=== PATIENT | male | born 1960 | race Caucasian/White ===

== ENCOUNTER 2024-08-29 13:04 | Outpatient (AMB) | payer BC, SELFPAY ==
--- NOTE | 2024-08-29 13:15 | A.OFFPC_ITS ---
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 Intake Note: New patient visit Weight Training Instructor Required: No Tobacco use date assessed: 08/29/24 Fall risk assessment: No Falls in past year Last assessed Fall Risk: 08/29/24 Dental Screening Dental Screen Date: 08/29/24 Did you have a dental visit in the last 12 months?: No Did you have a dental problem in the last 6 months where you did not have access to dental care?: No Was dental information given to patient?: Patient declined (Has dentures) HPI HPI Comments History of Present Illness Details 63 year old male with a past medical his tory of seasonal allergies presenting for follow up No prescription medications. Since November patient has been having daily moderate bilateral pain in the upper arms mainly in biceps. Denies injury. Denies frequent neck or thoracic pain. Only other associated symptoms-started snoring around the same time Following with optometry, Dr Ez MENG CONSTITUTIONAL: Denies weight loss, fever and chills. HEENT: Denies changes in vision and hearing. RESPIRATORY: Denies SOB and cough. CV: Denies palpitations and CP GI: Denies abdominal pain, nausea, vomiting and diarrhea. : Denies dysuria and urinary frequency. MSK: see HPI. SKIN: Denies rash and pruritus. NEUROLOGICAL: Denies headache PSYCHIATRIC: Denies recent changes in mood. PHYSICAL EXAM: GENERAL: Alert and oriented x 3. NAD EYES: EOMI. Anicteric. HENT: Moist mucous membranes. No scleral icterus. No cervical lymphadenopathy. LUNGS: Clear to auscultation bilaterally. CARDIOVASCULAR: Regular rate and rhythm. No murmur. No JVD. ABDOMEN: Soft, non-tender +bs EXTREMITIES: No edema. Non-tender. SKIN: No rashes or lesions. Warm. NEUROLOGIC: No focal neurological deficits. CN II-XII grossly intact PSYCHIATRIC: Cooperative. 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 1. Little interest or pleasure in doing things: not at all 2. Feeling down, depressed, or hopeless: not at all 3. Trouble falling or staying asleep, or sleeping too much: not at all 4. Feeling tired or having little energy: several days 5. Poor appetite or overeating: not at all 6. Feeling bad about yourself - or that you are a failure or have let yourself or your family down: not at all 7. Trouble concentrating on things, such as reading the newspaper or watching television: not at all 8. Moving or speaking so slowly that other people could have noticed. Or the opposite - being so fidgety or restless that you have been moving around a lot more than usual: not at all 9. Thoughts that you would be better off or of hurting yourself in some way: not at all Total score: 1 Depression Screening Interpretation: Negative (neg) Depression Screening Done: Yes 33085 - PHQ-9 Billing: Yes Source: Developed by Drs. Diallo Chew, Linnette Marte, Hema Danielle and colleagues, with an educational dayne from [employer]. Thrive Questionnaire Date Thrive assessed: 08/29/24 I am a: Patient What is your living situation today?: I have a steady place to live Within the past 12 months, did the food you bought not last and you didn't have the money to get more?: Never true Within the past 12 months, did you worry whether your food would run out before you got money to buy more?: Never true Do you have trouble paying for medicines?: No Do you have trouble getting transportation to medical appointments?: No Do you have trouble paying your heating and electricity bill?: No Do you have trouble taking care of your child, family member or friend?: No Do you have trouble with day-to-day activities such as bathing, preparing meals, shopping, managing finances, etc.?: No Are you currently unemployed and looking for a job?: No Are you interested in more education?: No Please select the resources that you would like help with: None Currently or been in a relationship where the following occur: No concerns reported THRIVE Score: 0 AUDIT C Alcohol Use Questionnaire (AUDIT-C) 1. How often do you have a drink containing alcohol?: Monthly or less 2. How many drinks containing alcohol do you have on a typical day when you are drinking?: 1 or 2 3. How often do you have six or more drinks on one occasion?: Never Total Score: 1 NIC-7 AMB Questionnaire NIC-7 Date NIC - 7 assessed: 08/29/24 Feeling nervous, anxious, or on edge: 0 = Not at all Not being able to stop or control worryin = Not at all Worrying too much about different things: 0 = Not at all Trouble relaxin = Not at all Being so restless that it is hard to sit still: 0 = Not at all Becoming easily annoyed or irritable: 0 = Not at all Feeling afraid as if something awful might happen: 0 = Not at all Total NIC-7 score (0-4 normal; 5-9 mild; 10-14 moderate; 15-21 severe): 0 Source: Developed by Drs. Diallo Chew, Linnette Marte, Hema andersen nd colleagues, with an educational dayne from [employer]. NIC-7 Assessment Billing NIC-7 Assessment Tool: NIC-7 Assessment 02701 Physical exam (Primary Care) Vital Signs: Last Vital Signs Pulse 77 08/29/24 13:21 Resp 16 08/29/24 13:21 BP 130/74 08/29/24 13:21 Pulse Ox 95 08/29/24 13:21 Oxygen Delivery Method Room Air 08/29/24 13:21 BMI result Body Mass Index 31.4 Tobacco/Smoking Status: Tobacco use Status Tobacco use date assessed 08/29/24 08/29/24 13:24 Patient Tobacco Use Status Current everyday Tobacco 08/29/24 13:24 e-Cigarette/Vaping Use Never Used 08/29/24 13:24 PHQ-9: PHQ-9 Score PHQ-9: Total score 1 08/30/24 14:50 Depression Screening Interpretation: Negative (neg) Thrive Assessment: Date of Thrive Assessment Date Thrive assessed 08/29/24 08/29/24 13:32 Currently or been in a relationship where the following occur: No concerns reported Coding Level of Care Code Est Pt Level 4 (40924) Complex EM visit Add On G2211 Diagnoses Muscle pain M79.10 Bilateral arm pain M79.601; M79.602 Additional Codes NIC-7 Assessment Billing - NIC-7 Assessment Tool: NIC-7 Assessment 28090 ( [id number]) Assessment & Plan Assessment & Plan (1) Muscle pain: Code(s): M79.10 - Myalgia, unspecified site Category: Medical Plan: xray thoracic and cervical spine Lyme and inflammation tests Consider sleep study (2) Bilateral arm pain: Code(s): M79.601 - Pain in right arm; M79.602 - Pain in left arm Category: Medical Plan: see above Orders: Orders Lyme IgG/IgM w/reflex to WB 08/29/24 M54.2 - Cervicalgia, M54.6 - Pain in thoracic spine, M79.601 - Pain in right arm, M79.602 - Pain in left arm, S46.219A - Strain of muscle, fascia and tendon of other parts of biceps, unspecified arm, initial encounter Complete Blood Count Auto Diff 08/29/24 M54.2 - Cervicalgia, M54.6 - Pain in thoracic spine, M79.601 - Pain in right arm, M79.602 - Pain in left arm, S46.219A - Strain of muscle, fascia and tendon of other parts of biceps, unspecified arm, initial encounter Prostate Specific Antigen 08/29/24 M54.2 - Cervicalgia, M54.6 - Pain in thoracic spine, M79.601 - Pain in right arm, M79.602 - Pain in left arm, S46.219A - Strain of muscle, fascia and tendon of other parts of biceps, unspecified arm, initial encounter Comprehensive Met. Panel 08/29/24 M54.2 - Cervicalgia, M54.6 - Pain in thoracic spine, M79.601 - Pain in right arm, M79.602 - Pain in left arm, S46.219A - Strain of muscle, fascia and tendon of other parts of biceps, unspecified arm, initial encounter Erythrocyte Sedimentation Rate 08/29/24 M54.2 - Cervicalgia, M54.6 - Pain in thoracic spine, M79.601 - Pain in right arm, M79.602 - Pain in left arm, S46.219A - Strain of muscle, fascia and tendon of other parts of biceps, unspecified arm, initial encounter XR cervical spine 4V 08/29/24 M54.2 - Cervicalgia, M54.6 - Pain in thoracic spine, M79.601 - Pain in right arm, M79.602 - Pain in left arm, S46.219A - Strain of muscle, fascia and tendon of other parts of biceps, unspecified arm, initial encounter XR thoracic spine 3V 08/29/24 M54.2 - Cervicalgia, M54.6 - Pain in thoracic spine, M79.601 - Pain in right arm, M79.602 - Pain in left arm, S46.219A - Strain of muscle, fascia and tendon of other parts of biceps, unspecified arm, initial encounter Lipid Panel 08/29/24 M54.2 - Cervicalgia, M54.6 - Pain in thoracic spine, M79.601 - Pain in right arm, M79.602 - Pain in left arm, S46.219A - Strain of muscle, fascia and tendon of other parts of biceps, unspecified arm, initial encounter Magnesium 08/29/24 M79.10 - Myalgia, unspecified site, Z12.5 - Encounter for screening for malignant neoplasm of prostate, Z13.0 - Encounter for screening for diseases of the blood and blood-forming organs and certain disorders involving the immune mechanism, Z13.228 - Encounter for screening for other metabolic disorders
[2024-08-29 13:21] VITALS: BP 130/74; PULSE 77; RESP 16; O2SAT 95; BMI 31.4
== END 2024-08-29 14:01 | disposition home or self-care (01) ==
LOC: HO.HMCFM 13:05
PROVIDERS: PCP Internal Medicine; Visit Provider Internal Medicine
DX: M79.10 Myalgia, unspecified site (principal); M79.601 Pain in right arm; M79.602 Pain in left arm

== ENCOUNTER → 2024-08-29 13:04 | Outpatient (BNVA) | payer BC, SELFPAY | PROVIDERS: PCP Internal Medicine; Visit Provider Internal Medicine | DX: M79.10 Myalgia, unspecified site (principal); M79.601 Pain in right arm; M79.602 Pain in left arm | CPT/HCPCS: 96127 ==

== ENCOUNTER 2024-08-29 14:09 | Outpatient (REF) | payer BC, SELFPAY ==
[2024-08-29 17:55] LABS: MANUAL DIFF FLAG NO
[2024-08-29 18:02] LABS: Basophils Absolute Auto 0.1 X10*3/uL (0.0-0.2); Basophils Percent Auto 0.5 % (0-2); Eosinophils Absolute Auto 0.3 X10*3/uL (0.0-0.4); Eosinophils Percent Auto 2.4 % (0-4); Hematocrit 46.2 % (42.0-52.0); Hemoglobin 15.4 g/dl (14.0-18.0); Imm Gran Abs Auto 0.03 X10*3/uL (0.00-0.03); Imm Gran Pct Auto 0.3 % (0.0-0.4); Lymphocytes Percent Auto 36.5 % (20-40); Mean Corpuscular HGB Conc 33.3 g/dl (31.0-36.0); Mean Corpuscular Hemoglobin 30.8 pg (27.0-33.0); Mean Corpuscular Volume 92.4 fL (80.0-98.0); Mean Platelet Volume 10.2 fL (9.4-12.4); Monocytes Absolute Auto 0.8 X10*3/uL (0.1-1.2); Monocytes Percent Auto 7.6 % (2-11); Neutrophils Absolute Auto 5.8 x10*3/uL (2.0-8.3); Neutrophils Percent Auto 52.7 % (45-73); Platelet Count 279 X10*3/uL (160-400); Red Cell Distribution Width 13.5 % (11.0-16.0); White Blood Count 11.1 X10*3/uL (4.8-10.8)
[2024-08-29 18:16] LABS: Alanine Aminotransferase 41 U/L (0-40); Albumin Level 4.4 g/dL (3.5-5.0); Alkaline Phosphatase 59 U/L (39-117); Anion Gap 12 (12-20); Aspartate Amino Transferase 33 U/L (5-37); Bilirubin Total 0.2 mg/dL (0.0-1.0); Blood Urea Nitrogen 16 mg/dL (9-16); Calcium 9.4 mg/dL (8.4-10.2); Carbon Dioxide 24 mmol/L (22-29); Chloride 111 mmol/L (96-108); Cholesterol 185 mg/dL (<200); Estimated Glomerular Filt Rate > 60; Glucose Random 99 mg/dL (60-115); HDL Cholesterol 36 mg/dL (>40); LDL Cholesterol Calculated 106 mg/dL (<100); Magnesium 2.4 mg/dL (1.6-2.6); Potassium 3.8 mmol/L (3.3-5.1); Sodium 143 mmol/L (135-145); Total Protein 6.9 g/dL (6.5-8.0); Triglycerides 216 mg/dL (<150)
[2024-08-29 18:51] LABS: Prostate Specific Antigen 1.23 ng/mL (<0.05-4.0)
[2024-08-29 20:19] LABS: Erythrocyte Sedimentation Rate 2 MM/HR (0-15)
[2024-08-31 06:07] LABS: Lyme Abs Screen <0.90 index
== END 2024-08-29 14:10 | disposition home or self-care (01) ==
LOC: HO.WFDLDS 14:09
PROVIDERS: Visit Provider Internal Medicine
DX: M79.601 Pain in right arm (principal); M79.602 Pain in left arm; S46.219A Strain of muscle, fascia and tendon of other parts of biceps, unspecified arm, initial encounter; M54.2 Cervicalgia; M54.6 Pain in thoracic spine; M79.10 Myalgia, unspecified site; Z12.5 Encounter for screening for malignant neoplasm of prostate; Z13.0 Encounter for screening for diseases of the blood and blood-forming organs and certain disorders involving the immune mechanism; Z13.228 Encounter for screening for other metabolic disorders
CPT/HCPCS: 36415; 80053; 80061; 83735; 84153; 85025; 85652; 86617; 86618

== ENCOUNTER 2024-09-08 15:38 | Outpatient (REF) | payer BC, SELFPAY | END 2024-09-08 15:39 | disposition home or self-care (01) | LOC: HO.XRAY 15:38 | PROVIDERS: PCP Internal Medicine; Visit Provider Internal Medicine | DX: M79.601 Pain in right arm (principal); M79.602 Pain in left arm; M54.2 Cervicalgia; M54.6 Pain in thoracic spine; S46.219A Strain of muscle, fascia and tendon of other parts of biceps, unspecified arm, initial encounter | CPT/HCPCS: 72050; 72072 ==

== ENCOUNTER → 2024-09-08 15:48 | Outpatient (BNV) | payer BC, SELFPAY | PROVIDERS: PCP Internal Medicine; Visit Provider Radiology Diagnostic Radiology | DX: M54.6 Pain in thoracic spine (principal); M79.601 Pain in right arm; M47.814 Spondylosis without myelopathy or radiculopathy, thoracic region | CPT/HCPCS: 72072 ==

== ENCOUNTER 2025-08-14 08:18 | Outpatient (AMB) | payer BC, SELFPAY ==
--- NOTE | 2025-08-14 08:28 | A.OFFPC_ITS ---
Vital Signs 08/14/25 08:30 Height 5 ft 7 in Weight 206 lb 8 oz BMI 32.3 BP 138/78 Blood Pressure Location Lt brachial Position Sitting Respiration 14 Pulse 68 Pulse Source Pulse Oximeter Pulse Oximetry (%) 96 Oxygen Delivery Method Room Air Intake Visit Reasons: 8-12 months CPE Intake Note: Physical Corporate Coordinator Required: No Allergies No Known Allergies Allergy (Verified 08/14/25 08:31) Tobacco use date assessed: 08/14/25 Last assessed Fall Risk: 08/14/25 Dental Screening Dental Screen Date: 08/14/25 Did you have a dental visit in the last 12 months?: No Did you have a dental problem in the last 6 months where you did not have access to dental care?: No Was dental information given to patient?: Patient declined (Has dentures) HPI HPI Comments History of Present Illness Details 63 year old male with a past medical his tory of seasonal allergies presenting CPE No prescription medications. Last November (2023) patient has been having daily moderate bilateral pain in the upper arms mainly in biceps. This has resolve Following with optometry, Dr Hui Colonoscopy 2021-Dr Hargrove [facility]-5 year Tdap 2013 declines Declines flu vaccination ROS CONSTITUTIONAL: Denies weight loss, fever and chills. HEENT: Denies changes in vision and hearing. RESPIRATORY: Denies SOB and cough. CV: Denies palpitations and CP GI: Denies abdominal pain, nausea, vomiting and diarrhea. : Denies dysuria and urinary frequency. MSK: see HPI. SKIN: Denies rash and pruritus. NEUROLOGICAL: Denies headache PSYCHIATRIC: Denies recent changes in mood. PHYSICAL EXAM: GENERAL: Alert and oriented x 3. NAD EYES: EOMI. Anicteric. HENT: Moist mucous membranes. No scleral icterus. No cervical lymphadenopathy. LUNGS: Clear to auscultation bilaterally. CARDIOVASCULAR: Regular rate and rhythm. No murmur. No JVD. ABDOMEN: Soft, non-tender +bs EXTREMITIES: No edema. Non-tender. SKIN: No rashes or lesions. Warm. NEUROLOGIC: No focal neurological deficits. CN II-XII grossly intact PSYCHIATRIC: Cooperative. 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 1. Little interest or pleasure in doing things: not at all 2. Feeling down, depressed, or hopeless: not at all 3. Trouble falling or staying asleep, or sleeping too much: not at all 4. Feeling tired or having little energy: not at all 5. Poor appetite or overeating: not at all 6. Feeling bad about yourself - or that you are a failure or have let yourself or your family down: not at all 7. Trouble concentrating on things, such as reading the newspaper or watching television: not at all 8. Moving or speaking so slowly that other people could have noticed. Or the opposite - being so fidgety or restless that you have been moving around a lot more than usual: not at all 9. Thoughts that you would be better off or of hurting yourself in some way: not at all Total score: 0 Depression Screening Interpretation: Negative Depression Screening Done: Yes 91005 - PHQ-9 Billing: Yes Source: Developed by Drs. Diallo Chew, Linnette Marte, Hema Danielle and colleagues, with an educational dayne from [employer]. Thrive Questionnaire Date Thrive assessed: 08/07/25 I am a: Patient What is your living situation today?: I have a steady place to live Within the past 12 months, did the food you bought not last and you didn't have the money to get more?: Never true Within the past 12 months, did you worry whether your food would run out before you got money to buy more?: Never true Do you have trouble paying for medicines?: I choose not to answer this question Do you have trouble getting transportation to medical appointments?: No Do you have trouble paying your heating and electricity bill?: No Do you have trouble taking care of your child, family member or friend?: No Do you have trouble with day-to-day activities such as bathing, preparing meals, shopping, managing finances, etc.?: No Are you currently unemployed and looking for a job?: No Are you interested in more education?: Yes Please select the resources that you would like help with: None Currently or been in a relationship where the following occur: No concerns reported THRIVE Score: 0 AUDIT C Alcohol Use Questionnaire (AUDIT-C) 1. How often do you have a drink containing alcohol?: Monthly or less 2. How many drinks containing alcohol do you have on a typical day when you are drinking?: 1 or 2 3. How often do you have six or more drinks on one occasion?: Never Total Score: 1 NIC-7 AMB Questionnaire NIC-7 Date NIC - 7 assessed: 08/14/25 Feeling nervous, anxious, or on edge: 0 = Not at all Not being able to stop or control worryin = Not at all Worrying too much about different things: 0 = Not at all Trouble relaxin = Not at all Being so restless that it is hard to sit still: 0 = Not at all Becoming easily annoyed or irritable: 0 = Not at all Feeling afraid as if something awful might happen: 0 = Not at all Total NIC-7 score (0-4 normal; 5-9 mild; 10-14 moderate; 15-21 severe): 0 Source: Developed by Drs. Diallo Chew, Linnette Marte, Hema Danielle and colleagues, with an educational dayne from [employer]. NIC-7 Assessment Billing NIC-7 Assessment Tool: NIC-7 Assessment 26955 Physical exam (Primary Care) Vital Signs: Last Vital Signs Pulse 68 08/14/25 08:30 Resp 14 08/14/25 08:30 BP 138/78 08/14/25 08:30 Pulse Ox 96 08/14/25 08:30 Oxygen Delivery Method Room Air 08/14/25 08:30 BMI result Body Mass Index 32.3 Tobacco/Smoking Status: Tobacco use Status Tobacco use date assessed 08/14/25 08/14/25 08:34 Patient Tobacco Use Status Current everyday Tobacco 08/14/25 08:34 e-Cigarette/Vaping Use Never Used 08/14/25 08:34 PHQ-9: PHQ-9 Score PHQ-9: Total score 0 08/14/25 08:34 Depression Screening Interpretation: Negative Thrive Assessment: Date of Thrive Assessment Date Thrive assessed 08/07/25 08/14/25 08:34 Currently or been in a relationship where the following occur: No concerns reported Coding Level of Care Code Est Pt Prev Care >65y(16114) Diagnoses Physical exam Z00.00 Additional Codes NIC-7 Assessment Billing - NIC-7 Assessment Tool: NIC-7 Assessment 89552 ([id number]) PHQ-9 - 15989 - PHQ-9 Billing: Yes ([id number]) Assessment & Plan Assessment & Plan (1) Physical exam: Code(s): Z00.00 - Encounter for general adult medical examination without abnormal findings Category: Medical Plan 64 year old male for CPE Interval history reviewed Preventive measures for age discused Declined tdap, flu Labs ordered Orders: Orders Lipid Panel Today M54.6 - Pain in thoracic spine, M79.601 - Pain in right arm, M79.602 - Pain in left arm, R53.83 - Other fatigue, Z12.5 - Encounter for screening for malignant neoplasm of prostate, Z13.228 - Encounter for screening for other metabolic disorders Prostate Specific Antigen Today M54.6 - Pain in thoracic spine, M79.601 - Pain in right arm, M79.602 - Pain in left arm, R53.83 - Other fatigue, Z12.5 - Encounter for screening for malignant neoplasm of prostate, Z13.228 - Encounter for screening for other metabolic disorders Lyme IgG/IgM w/reflex to WB Today M79.601 - Pain in right arm, M79.602 - Pain in left arm Complete Blood Count Auto Diff Today M54.6 - Pain in thoracic spine, M79.601 - Pain in right arm, M79.602 - Pain in left arm, R53.83 - Other fatigue, Z12.5 - Encounter for screening for malignant neoplasm of prostate, Z13.228 - Encounter for screening for other metabolic disorders Comprehensive Met. Panel Today M54.6 - Pain in thoracic spine, M79.601 - Pain in right arm, M79.602 - Pain in left arm, R53.83 - Other fatigue, Z12.5 - Encounter for screening for malignant neoplasm of prostate, Z13.228 - Encounter for screening for other metabolic disorders Vitamin B12 and Folate Today M54.6 - Pain in thoracic spine, M79.601 - Pain in right arm, M79.602 - Pain in left arm, R53.83 - Other fatigue, Z12.5 - Encounter for screening for malignant neoplasm of prostate, Z13.228 - Encounter for screening for other metabolic disorders TSH reflex Free T4 Today M54.6 - Pain in thoracic spine, M79.601 - Pain in ri ght arm, M79.602 - Pain in left arm, R53.83 - Other fatigue, Z12.5 - Encounter for screening for malignant neoplasm of prostate, Z13.228 - Encounter for screening for other metabolic disorders
[2025-08-14 08:30] VITALS: BP 138/78; PULSE 68; RESP 14; O2SAT 96; BMI 32.3
== END 2025-08-14 09:01 | disposition home or self-care (01) ==
LOC: HO.HMCFM 08:19
PROVIDERS: PCP Internal Medicine; Visit Provider Internal Medicine
DX: Z00.00 Encounter for general adult medical examination without abnormal findings (principal)

== ENCOUNTER → 2025-08-14 08:18 | Outpatient (BNVA) | payer BC, SELFPAY | PROVIDERS: PCP Internal Medicine; Visit Provider Internal Medicine | DX: Z00.00 Encounter for general adult medical examination without abnormal findings (principal); Z13.31 Encounter for screening for depression; Z13.39 Encounter for screening examination for other mental health and behavioral disorders | CPT/HCPCS: 96127 ==